=== PATIENT | female | born 1985 | race Caucasian/White ===

== ENCOUNTER 2017-03-13 04:01 | Emergency (ER) | payer OTHER ==
[~2017-03-13] VITALS: Ht 175.3 cm; Wt 113.6 kg
[~2017-03-13 04:01] MED LIST: ACYCLOVIR200 MG PO; Chromagen, Feogen, M PO; FOLIC ACID1 MG PO; Flagyl PO; Flintstones PO; HYDROCODON-ACE1 EAC7 PO; KENALOG,ARISTOC80 GM TP; Kenalog,Aristocort 0 TP; LYRICA100 MG PO; MELOXICAM15 MG PO; METHOTREXATE2.5 MG; METHOTREXATE2.5 MG PO; Motrin PO; PREDNISONE20 MG; PREDNISONE20 MG PO; PROGESTERONE50 MG/ML IM; TYLENOL EXTRA500 MG PO; Tylenol Regular Stre PO; ZOFRAN ODT4 MG PO; ZOFRAN ODT8 MG PO
[2017-03-13] MEDS ORDERED: CLEOCIN300 MG PO (04:59)
[2017-03-13] MEDS ORDERED: TYLENOL WITH C1 EACH PO (04:59)
[2017-03-13 05:23] VITALS: BP 155/95
== END 2017-03-13 05:46 | disposition home or self-care (01) ==
LOC: EME 04:01
DX: K02.9 Dental caries, unspecified (principal); R22.0 Localized swelling, mass and lump, head; F32.9 Major depressive disorder, single episode, unspecified; F41.9 Anxiety disorder, unspecified; F17.200 Nicotine dependence, unspecified, uncomplicated; Z88.0 Allergy status to penicillin
CPT/HCPCS: 99281; 99284

== ENCOUNTER 2017-07-29 22:49 | Emergency (ER) | payer OTHER ==
[~2017-07-29] VITALS: Ht 175.3 cm; Wt 108.3 kg
[~2017-07-29 22:49] MED LIST changes: +CLEOCIN300 MG PO; +TYLENOL WITH C1 EACH PO
[2017-07-30] MEDS ORDERED: CLEOCIN300 MG PO (00:29)
[2017-07-30] MEDS ORDERED: NORCO 5/3251 TABLET PO (00:29)
[2017-07-30 00:51] VITALS: BP 143/56
== END 2017-07-30 00:59 | disposition home or self-care (01) ==
LOC: EME 22:49
DX: L03.116 Cellulitis of left lower limb (principal); L03.115 Cellulitis of right lower limb; Z86.14 Personal history of Methicillin resistant Staphylococcus aureus infection; Z88.0 Allergy status to penicillin; F17.200 Nicotine dependence, unspecified, uncomplicated
CPT/HCPCS: 99281; 99284

== ENCOUNTER 2017-12-18 18:11 | Inpatient (IN) | payer OTHER ==
[~2017-12-18] VITALS: Ht 175.3 cm; Wt 109.0 kg
[~2017-12-18 18:11] MED LIST changes: +NORCO 5/3251 TABLET PO
[2017-12-18 19:47] LABS: HEMATOCRIT 37.4 % (36.0-46.0); MCH 29.6 PG (29.0-34.0); MCHC 32.1 G/DL (30.0-36.0); MCV 92.3 FL (83-99); PLATELET COUNT 326 K/uL (156-360); RBC DIS.WIDTH-CV 14.6 % (11.8-14.6); RBC DIS.WIDTH-SD 49.1 % (39-53); RED BLOOD COUNT 4.05 M/uL (3.80-5.20); WHITE BLOOD COUNT 11.2 K/uL (4.1-10.2)
[2017-12-18] MEDS ORDERED: CYMBALTA60 MG PO (19:50)
[2017-12-18] MEDS ORDERED: NEURONTIN600 MG PO (19:51)
[2017-12-18] MEDS ORDERED: METHADONE10 MG PO (19:51)
[2017-12-18 19:58] LABS: CHLORIDE 100 mEq/L (99-109); POTASSIUM 3.8 mEq/L (3.7-5.4); SODIUM 139 mEq/L (136-147)
[2017-12-18 19:59] LABS: GLUCOSE 75 mg/dL (70-99)
[2017-12-18 20:03] LABS: CREATININE 0.7 mg/dL (0.6-1.3); GFR ESTIMATE (CALCULATED) > 59 mL/min/
[2017-12-18 20:04] LABS: UREA NITROGEN (BUN) 4 mg/dL (9-23)
[2017-12-18 23:32] LABS: TROP-I INTERPRETATION NEGATIVE; TROPONIN-I < 0.01 ng/mL (0.0-0.30)
[2017-12-19 00:27] VITALS: BP 108/53
[2017-12-19 06:32] LABS: HEMATOCRIT 32.6 % (36.0-46.0); MCH 28.8 PG (29.0-34.0); MCHC 30.7 G/DL (30.0-36.0); MCV 93.9 FL (83-99); PLATELET COUNT 241 K/uL (156-360); RBC DIS.WIDTH-CV 14.7 % (11.8-14.6); RBC DIS.WIDTH-SD 49.7 % (39-53); RED BLOOD COUNT 3.47 M/uL (3.80-5.20); WHITE BLOOD COUNT 6.6 K/uL (4.1-10.2)
[2017-12-19 06:37] LABS: TROP-I INTERPRETATION NEGATIVE; TROPONIN-I < 0.01 ng/mL (0.0-0.30)
[2017-12-19 06:39] LABS: CHLORIDE 108 MEQ/L (99-109); CREATININE 0.7 MG/DL (0.6-1.3); GFR ESTIMATE (CALCULATED) > 59 mL/min/; GLUCOSE 82 mg/dL (70-99); POTASSIUM 4.4 MEQ/L (3.7-5.4); SODIUM 140 MEQ/L (136-147); UREA NITROGEN (BUN) 4 mg/dL (9-23)
[2017-12-19 07:16] VITALS: BP 114/54
[2017-12-19 10:27] LABS: APPEARANCE SL.HAZY ((CLEAR)); BILIRUBIN NEGATIVE; BLOOD MODERATE; COLOR YELLOW ((YELLOW)); GLUCOSE (STRIP) NEGATIVE; KETONES NEGATIVE; LEUKOCYTES TRACE; NITRITE NEGATIVE; PROTEIN (STRIP) NEGATIVE; SPECIFIC GRAVITY 1.009 (1.000-1.030); UROBILINOGEN 0.2 MG/DL (0.2-1.0)
[2017-12-19 10:50] LABS: BACTERIA NONE SEEN /HPF; EPITHELIAL CELLS 1+ /HPF; MUCUS TRACE /LPF; UCUL ADDED? YES
[2017-12-19 15:55] VITALS: BP 108/53
[2017-12-20 00:57] VITALS: BP 102/55
[2017-12-20 07:05] VITALS: BP 111/54
[2017-12-20] MEDS ORDERED: DOXYCYCLINE HY100 MG PO (10:13)
[2017-12-20] MEDS ORDERED: IBUPROFEN400 MG PO (10:15)
[2017-12-20 12:03] VITALS: BP 125/58
== END 2017-12-20 14:00 | disposition home or self-care (01) | DRG 603 ==
LOC: EME 18:11 → EDOF 21:14 → ENRESERV 21:24 → 5EAST 23:14
PROVIDERS: Hospitalist; Nurse Practitioner Acute Care
DX: L03.116 Cellulitis of left lower limb (principal); F11.20 Opioid dependence, uncomplicated; F33.9 Major depressive disorder, recurrent, unspecified; T88.6XXA Anaphylactic reaction due to adverse effect of correct drug or medicament properly administered, initial encounter; L03.115 Cellulitis of right lower limb; F17.210 Nicotine dependence, cigarettes, uncomplicated; L40.0 Psoriasis vulgaris; E66.9 Obesity, unspecified; B95.8 Unspecified staphylococcus as the cause of diseases classified elsewhere; R07.89 Other chest pain; T36.8X5A Adverse effect of other systemic antibiotics, initial encounter; Z88.0 Allergy status to penicillin; Z56.0 Unemployment, unspecified; Z68.35 Body mass index [BMI] 35.0-35.9, adult; Z88.6 Allergy status to analgesic agent; Z91.040 Latex allergy status; Z88.1 Allergy status to other antibiotic agents; Z90.49 Acquired absence of other specified parts of digestive tract; Z82.49 Family history of ischemic heart disease and other diseases of the circulatory system
CPT/HCPCS: 71046; 80048; 81003; 83605; 84484; 85027; 87040; 87086; 93005; 99281; 99285; J0744; J1200; J1650; J1885; J2405; J3370; J7030; J7050

== ENCOUNTER 2018-01-02 23:25 | Emergency (ER) | payer OTHER ==
[~2018-01-02] VITALS: Ht 175.3 cm; Wt 107.9 kg
[~2018-01-02 23:25] MED LIST changes: +CYMBALTA60 MG PO; +DOXYCYCLINE HY100 MG PO; +IBUPROFEN400 MG PO; +METHADONE10 MG PO; +NEURONTIN600 MG PO
[2018-01-03 00:31] LABS: BASOPHIL (%) 0.5 % (0-1); EOSINOPHIL (%) 7.1 % (0-5); EOSINOPHIL COUNT 0.5 K/uL (0-0.3); HEMATOCRIT 33.7 % (36.0-46.0); HEMOGLOBIN 10.7 G/DL (11.9-15.5); IMMATURE GRANULOCYTE (%) 0.3 % (0.0-0.7); LYMPHOCYTE (%) 26.9 % (15-42); LYMPHOCYTE COUNT 2.1 K/uL (1.0-2.8); MCH 29.3 PG (29.0-34.0); MCHC 31.8 G/DL (30.0-36.0); MCV 92.3 FL (83-99); MONOCYTE (%) 9.2 % (3-12); MONOCYTE COUNT 0.7 K/uL (0-0.8); NEUTROPHIL COUNT 4.3 K/uL (1.8-6.4); RBC DIS.WIDTH-CV 14.9 % (11.8-14.6); RBC DIS.WIDTH-SD 49.8 % (39-53); RED BLOOD COUNT 3.65 M/uL (3.80-5.20); WHITE BLOOD COUNT 7.6 K/uL (4.1-10.2)
[2018-01-03 00:43] LABS: PLATELET COUNT 320 K/uL (156-360)
[2018-01-03 01:10] LABS: ALBUMIN 3.5 g/dL (3.2-4.8); CHLORIDE 100 mEq/L (99-109); POTASSIUM 4.1 mEq/L (3.7-5.4); SODIUM 140 mEq/L (136-147)
[2018-01-03 01:13] LABS: GLUCOSE 90 mg/dL (70-99); TOTAL PROTEIN 7.8 g/dL (6.4-8.3)
[2018-01-03 01:15] LABS: TOTAL BILIRUBIN 0.4 mg/dL (0.0-1.0)
[2018-01-03 01:16] LABS: ALKALINE PHOSPHATASE 91 IU/L (3-129); CREATININE 0.7 mg/dL (0.6-1.3); GFR ESTIMATE (CALCULATED) > 59 mL/min/
[2018-01-03 01:17] LABS: UREA NITROGEN (BUN) 4 mg/dL (9-23)
[2018-01-03] MEDS ORDERED: DOXYCYCLINE HY100 MG PO (01:17)
[2018-01-03] MEDS ORDERED: ULTRAM50 MG PO (01:17)
[2018-01-03 01:18] LABS: AST (GOT) 13 IU/L (2-34)
[2018-01-03 01:19] LABS: ALT (GPT) 7 IU/L (3-49)
[2018-01-03 01:44] VITALS: BP 121/72
== END 2018-01-03 01:55 | disposition home or self-care (01) ==
LOC: EME 23:25
DX: L40.9 Psoriasis, unspecified (principal); L03.115 Cellulitis of right lower limb; R11.2 Nausea with vomiting, unspecified; Z90.49 Acquired absence of other specified parts of digestive tract; Z98.51 Tubal ligation status; F17.200 Nicotine dependence, unspecified, uncomplicated
CPT/HCPCS: 80053; 83605; 85025; 99281; 99285